=== PATIENT | female | born 1955 | race Caucasian/White ===

== ENCOUNTER → 2017-01-14 | Outpatient (CLI) | payer OTHER ==
[~2017-01-14] MED LIST: ASPI-586 PO; NIFE-7 PO; RIZA10TA37 PO
--- NOTE | 2017-01-14 18:19 | Diagnostic Imaging Report ---
Bilateral screening mammogram 2D views with tomosynthesis. The current study was also evaluated with a Computer Aided Detection (CAD) system. INDICATION: Screening. No current complaints stated on the questionnaire. COMPARISON: 12/22/2014. FINDINGS: The breasts are composed of scattered fibroglandular densities. There are scattered benign-appearing calcifications. Allowing for technique and positional differences, no suspicious change is seen. IMPRESSION: No significant change. ACR BI-RADS Category 2: Benign findings. Result letter will be mailed to the patient. Note: At least 10% of breast cancer is not imaged by mammography. Dictated by: Dictated on workstation # [id number]
== END ==
LOC: RAD 09:24
PROVIDERS: ATTEND Internal Medicine
DX: Z12.31 Encounter for screening mammogram for malignant neoplasm of breast (principal)
CPT/HCPCS: 77067

== ENCOUNTER 2017-01-28 05:41 | Outpatient (CLI) | payer OTHER ==
[~2017-01-28] VITALS: Ht 157.5 cm; Wt 56.5 kg
[2017-01-28] MEDS ORDERED: RIZA10TA37 PO (12:12)
[2017-01-28] MEDS ORDERED: NIFE-7 PO (12:12)
== END 2017-01-28 12:28 ==
LOC: PREOP 05:41
PROVIDERS: ATTEND Surgery
DX: Z12.11 Encounter for screening for malignant neoplasm of colon; Z01.818 Encounter for other preprocedural examination; Z80.0 Family history of malignant neoplasm of digestive organs

== ENCOUNTER 2017-01-30 11:27 | Day surgery (SDC) | payer OTHER ==
[~2017-01-30] VITALS: Ht 157.5 cm; Wt 56.5 kg
[~2017-01-30 11:27] MED LIST changes: -ASPI-586 PO
--- OUTSIDE RECORDS SUMMARY | 2017-01-30 11:31 | XMS REPORT ---
Author Author DAREN WHEATLEY Organization [employer] Address Unknown Phone Unavailable Care Team Providers Care Tube Worker Name Role Phone DAREN WHEATLEY CP Unavailable Allergies No Known Allergies Problems Problem Type Condition Code Onset Dates Condition Status Assessment Flu vaccine need Z23 Active Problem Need for prophylactic vaccination and inoculation, Influenza V04.81 Active Medications No Known Medications Procedures Procedure Coding System Code Date SINGLE IMMUNIZATION ADMIN CPT-4 12113 Feb 14, 2015 FLUARIX QUAD (3 & UP)-GSK-2014 CPT-4 21064 Feb 14, 2015 Results No Known Results Immunizations Vaccine Administration Date FLUARIX QUAD (3 & UP)-GSK-2014Feb 14, 2015 Summary Purpose [employer] Submission
--- OUTSIDE RECORDS SUMMARY | 2017-01-30 11:31 | XMS REPORT ---
Author Author DAREN WHEATLEY Organization [employer] Address Unknown Phone Unavailable Care Team Providers Care Picture Booker Name Role Phone DAREN WHEATLEY Unavailable Allergies No Known Allergies Problems Problem Type Condition Code Onset Dates Condition Status Assessment Encounter for immunization Z23 Active Problem Need for prophylactic vaccination and inoculation, Influenza V04.81 Active Medications No Known Medications Procedures Procedure Coding System Code Date SINGLE IMMUNIZATION ADMIN CPT-4 44964 Jan 28, 2016 FLUARIX QUAD P-FREE 3 AND UP .50 2015 CPT-4 32740 Jan 28, 2016 Results No Known Results Immunizations Vaccine Administration Date FLUARIX QUAD P-FREE 3 AND UP .50 2015Jan 28, 2016 Summary Purpose [employer] Submission
--- OUTSIDE RECORDS SUMMARY | 2017-01-30 11:32 | XMS REPORT | Continuity of Care Document ---
Author Author [facility] Organization [facility] Address Unknown Phone Unavailable Allergies Medications Problems Date Dx Coded Attending Type Code Diagnosis Diagnosed By 12/04/2010 Ot 787.91 09/26/2014 Ot V76.12 09/26/2014 Ot 787.91 01/14/2017 MEGAN FABIAN APRN Ot 719.45 JOINT PAIN-PELVIS 01/14/2017 MEGAN FABIAN APRN Ot V76.12 OT SCREEN MAMMO-MALIGN NEOPLASM OF FLAVIO 01/15/2017 JAQUAN BRICE MD Ot Z12.31 ENCNTR SCREEN MAMMOGRAM FOR MALIGNANT NE Procedures Results Encounters ACCT No. Visit Date/Time Discharge Status Pt. Type Provider Facility Loc./Unit Complaint [id number] 01/14/2017 09:24:00 2016 23:59:59 CLS Outpatient JAQUAN BRICE MD [facility] RAD SCREENING [id number] 12/22/2014 13:00:00 2014 23:59:59 CLS Outpatient MEGAN FABIAN APRN [facility] RAD SCREENING [id number] 09/26/2014 14:34:00 2014 23:59:59 CLS Outpatient MEGAN FABIAN APRN [facility] RAD HIP PAIN LEFT [id number] 12/05/2010 00:00:00 Document Registration [id number] 09/10/2010 10:16:00 Document Registration [id number] 12/10/2009 07:54:00 Document Registration
[2017-01-30] MEDS ORDERED: NS IV 500 ML 500 ML ONE (11:44)
[2017-01-30 12:00] VITALS: BP 132/84
[2017-01-30] MEDS ORDERED: ASPI-586 PO (12:07)
[2017-01-30] MEDS ORDERED: NS IV 500 ML 500 ML IV SCH (12:15)
[2017-01-30] MEDS ORDERED: LIDOCAINE JELLY 2% (XYLOCAINE) 5 ML TUBE MM PRN (12:15)
[2017-01-30] MEDS ORDERED: fentaNYL INJECTION 100 MCG/2 ML AMP ONE ×2 (12:20)
[2017-01-30] MEDS ORDERED: LIDOCAINE JELLY 2% (XYLOCAINE) 5 ML TUBE ONE (12:20)
[2017-01-30] MEDS ORDERED: MIDAZOLAM 2 MG/2 ML (VERSED) VIAL ONE ×3 (12:20→12:21)
[2017-01-30] MEDS: fentaNYL INJECTION 100 MCG/2 ML AMP IVP PRN ×4 (12:28→12:42)
[2017-01-30] MEDS: MIDAZOLAM 2 MG/2 ML (VERSED) VIAL IVP PRN ×3 (12:32→12:40)
--- NOTE | 2017-01-30 12:58 | Conscious Sedation/ASA ---
Conscious Sedation Pre-Proced Time Reviewed: 11:30 ASA Class: 2 Airway Mallampati Classification: ([place] appropriate class) I. II. III, IV Lungs Heart ASA score ASA 1: a normal healthy patient ASA 2: a patient with a mild systemic disease (mid diabetes, controlled hypertension, obesity ASA 3: a patient with a severe systemic disease that limits activity (angina , COPD, prior Myocardial infarction) ASA 4: a patient with an incapacitating disease that is a constant threat to life (CHF, renal failure) ASA 5: a moribund patient not expected to survive 24 hrs. (ruptured aneurysm) ASA 6: a declared brain patient whose organs are being harvested. For emergent operations, add the letter E after the classification Grade 2 Sedation Plan: Analgesia, Amnesia, Plan communicated to team members, Discussed options with patient/fam, Discussed risks with patient/fam Note The patient is an appropriate candidate to undergo the planned procedure, sedation, and anesthesia. The patient immediately re-assessed prior to indication. JULEE LOYA MD Jan 30, 2017 12:58 pm
--- NOTE | 2017-01-30 12:59 | Progress Note-Pre Operative ---
Pre-Operative Progress Note H&P Reviewed The H&P was reviewed, patient examined and no changes noted. Date Seen by Provider: Jan 30, 2017 Time Seen by Provider: 11:30 Date H&P Reviewed: Jan 30, 2017 Time H&P Reviewed: 11:30 Pre-Operative Diagnosis: screening/family hx JULEE LOYA MD Jan 30, 2017 12:59 pm
--- NOTE | 2017-01-30 13:00 | Progress Note-Post Operative ---
Post-Operative Progess Note Surgeon (s)/Rn Internship (s) Surgeon JULEE LOYA MD Rn Internship: none Pre-Operative Diagnosis screening/family hx Post-Operative Diagnosis mild chronic stage 2 ext and int hemorrhoids. Procedure & Operative Findings Date of Procedure 01/30/17 Procedure Performed/Findings Colonoscopy. Anesthesia Type CS Estimated Blood Loss Estimated blood loss (mL): minimal Specimens/Packing Specimens Removed none JULEE LOYA MD Jan 30, 2017 1:00 pm
--- NOTE | 2017-01-30 13:02 | Discharge Inst-Surgical ---
D/C Lap Instructions-SHALINI Follow Up 5 yrs Activity as tolerated High Fiber Diet 25g or more per day Avoid Alcohol, Caffeine, Spicy [place] and Acid foods. Drink 64 fluid oz or more of fluids per day. Symptoms to Report: Fever over 101 degree F, Nausea/Vomiting If any problems/questions: Contact your physician or go to Emergency Room JULEE LOYA MD Jan 30, 2017 13:02
[2017-01-30 13:15] VITALS: BP 107/82
[2017-01-30] MEDS ORDERED: ACETAMINOPHEN 325 MG TABLET/CAPLET (TYLENOL) PO PRN (13:15)
[2017-01-30] MEDS ORDERED: HYDROcodone/APAP 5 MG/325 MG (LORTAB) TAB PO PRN (13:15)
[2017-01-30] MEDS ORDERED: ONDANSETRON 4 MG/2 ML (SDV) Z0FRAN IV PRN (13:15)
[2017-01-30] MEDS ORDERED: morphine INJ 10 MG/ML 1ML (SYR OR VIAL) IV PRN (13:15)
[2017-01-30 13:45] VITALS: BP 136/75
[2017-01-30 14:00] VITALS: BP 136/75
--- NOTE | 2017-01-30 23:38 | OPERATIVE REPORT ---
DATE OF SERVICE: 01/30/2017 ATTENDING PRIMARY CARE PHYSICIAN: Dr. Salvador. PREOPERATIVE DIAGNOSIS: Screening colonoscopy with family history of colon cancer. POSTOPERATIVE DIAGNOSIS: Mild chronic stage II external and internal hemorrhoids. PROCEDURE: Colonoscopy. SURGEON: Dr. Loya. ANESTHESIA: Conscious sedation. ESTIMATED BLOOD LOSS: Minimal. FINDINGS: Mild stage II chronic external and internal hemorrhoids, not actively edematous nor inflamed and no bleeding. The remainder of the rectum and colon were normal. There were no polyps or any neoplasms identified. DISPOSITION: The patient tolerated the procedure well. INDICATIONS: The patient is a 61-year-old female in need of a screening colonoscopy. She states for the most part that she is doing well and does not report any major issues with diarrhea nor constipation as well as no red blood per rectum nor any dark tarry stools. She also reports trying to incorporate copious amounts of fruits and vegetables and other fiber products on a daily basis. She does have a family history of colon cancer with her father having the disease diagnosed in his 80s. DESCRIPTION OF PROCEDURE: The patient was brought to the endoscopy suite, laid in the left lateral decubitus position. After adequate IV pain and sedating medications and conscious sedation anesthesia, a digital rectal examination was performed. Mild stage II chronic external and internal hemorrhoids were identified which were not actively edematous nor inflamed and no bleeding. Normal sphincter tone was felt and there were no palpable masses. The endoscope was then intubated into the anus and rectum and gently insufflated. Endoscope was then advanced through the valves of [place] in the rectum with no polyps or any neoplasms identified. The endoscope was then advanced through the sigmoid colon where no diverticulosis was identified. We then proceeded to the remainder of the descending, transverse, and ascending colon to the cecum. These segments were normal. There were no polyps or any neoplasms identified throughout the colon or rectum. The endoscope was slowly withdrawn while taking a second look and suctioning residual air with no additional findings. The patient tolerated the procedure well. We will have her continue with medical management with high fiber diet with at least 25 to 30 grams of fiber per day as well as at least 64 fluid ounces of water daily to promote soft stools on a daily basis. She does not need another colonoscopy. We will recommend a followup colonoscopy in approximately 5 years. Job ID: [id number] DocumentID: [id number] Dictated Date: 01/30/2017 12:56:09 Before School Date: 01/30/2017 23:38:19 Dictated By: JULEE LOYA MD
== END 2017-01-30 14:00 | disposition home or self-care (01) ==
LOC: ENDO 11:27
PROVIDERS: ATTEND Surgery
DX: Z12.11 Encounter for screening for malignant neoplasm of colon (principal); Z80.0 Family history of malignant neoplasm of digestive organs; K64.1 Second degree hemorrhoids; I73.00 Raynaud's syndrome without gangrene; Z79.899 Other long term (current) drug therapy

== ENCOUNTER → 2018-02-24 | Outpatient (CLI) | payer BC, OTHER ==
[~2018-02-24] MED LIST changes: +ASPI-586 PO; -NIFE-7 PO; +NIFE30TA89 PO
--- NOTE | 2018-02-25 19:05 | Diagnostic Imaging Report ---
INDICATION: Routine screening. COMPARISON: Comparison is made with prior mammograms from 01/14/2017 and 12/22/2014. TECHNIQUE: 2D and 3D bilateral screening mammography was performed with computer-aided detection (CAD) system. FINDINGS: Both breasts are heterogeneously dense, limiting the sensitivity of mammography. The parenchymal pattern appears stable. No mass or malignant appearing microcalcifications are seen. The axillae are unremarkable. IMPRESSION: No mammographic features suspicious for malignancy are identified. ACR BI-RADS Category 1: Negative. Result letter will be mailed to the patient. Note: At least 10% of breast cancer is not imaged by mammography. Dictated by: Dictated on workstation # [id number]
== END ==
LOC: RAD 14:26
PROVIDERS: ATTEND Internal Medicine
DX: Z12.31 Encounter for screening mammogram for malignant neoplasm of breast (principal)
CPT/HCPCS: 77067

== ENCOUNTER → 2020-10-31 | Outpatient (CLI) | payer BC, MEDICARE, OTHER ==
--- NOTE | 2020-10-31 12:50 | Diagnostic Imaging Report ---
INDICATION: Routine screening. COMPARISON: 02/24/2018 and 01/14/2017. TECHNIQUE: 2D and 3D bilateral screening mammography was performed with CAD. FINDINGS: Scattered fibroglandular densities are identified bilaterally. The parenchymal pattern is stable. No mass or malignant appearing microcalcifications are seen. The axillae are unremarkable. IMPRESSION: No mammographic features suspicious for malignancy are identified. ACR BI-RADS Category 1: Negative. Result letter will be mailed to the patient. Note: At least 10% of breast cancer is not imaged by mammography. Dictated by: Dictated on workstation # [id number]
== END ==
LOC: RAD 10:15
PROVIDERS: ATTEND Internal Medicine
DX: Z12.31 Encounter for screening mammogram for malignant neoplasm of breast (principal)
CPT/HCPCS: 77063; 77067

== ENCOUNTER → 2022-08-28 | Outpatient (CLI) | payer BC, OTHER ==
--- NOTE | 2022-08-28 13:09 | Diagnostic Imaging Report ---
Indication: Routine screening. Comparison is made with prior mammogram 10/31/2020 and 02/24/2018. 2-D and 3-D bilateral screening mammography was performed with CAD. CAD is utilized. The current study was also evaluated with a Computer Aided Detection (CAD) system. Scattered fibroglandular densities are identified bilaterally. No mass or malignant-appearing microcalcifications are seen. Axillae are unremarkable. IMPRESSION: BI-RADS Category 1 No mammographic features suspicious for malignancy are identified. ACR BI-RADS Category 1: Negative. Result letter will be mailed to the patient. Note: At least 10% of breast cancer is not imaged by mammography. Dictated by: Dictated on workstation # [id number]
== END ==
LOC: RAD 09:13
PROVIDERS: ATTEND Internal Medicine
DX: Z12.31 Encounter for screening mammogram for malignant neoplasm of breast (principal)
CPT/HCPCS: 77063; 77067